=== PATIENT | male | born 1950 | race Caucasian/White ===

== ENCOUNTER 2020-08-10 06:24 | Day surgery (SDC) | payer MEDICARE, BC ==
[2020-08-10] MEDS ORDERED: Dexamethasone 4 MG/ML SDV IV ONE (06:25)
[2020-08-10] MEDS ORDERED: Midazolam 1 MG/ML 2 ML SDV IV ONE (06:25)
[2020-08-10] MEDS ORDERED: Sodium Chloride 0.9% 10 ML Syringe IV ONE (06:25)
[2020-08-10] MEDS ORDERED: Proparacaine 0.5% Ophth Soln 15 ML Bottle EYERT ONE (06:30)
[2020-08-10] MEDS ORDERED: Sodium Chloride 0.9% 10 ML Syringe FLUSH PRN (06:30)
[2020-08-10] MEDS ORDERED: Acetaminophen 325 MG Tab PO PRN (06:30)
[2020-08-10] MEDS ORDERED: Timolol Maleate 0.5% Ophth Soln 5 ML Bottle EYERT ONE (06:30)
[2020-08-10] MEDS ORDERED: Phenylephrine 10% Ophth Soln 5 ML Bot EYERT PRN (06:30)
[2020-08-10] MEDS ORDERED: Tropicamide 1% Ophth Soln 15 ML Bottle EYERT ONE (06:30)
[2020-08-10] MEDS ORDERED: Phenylephrine 10% Ophth Soln 5 ML Bot EYERT ONE (06:30)
[2020-08-10] MEDS ORDERED: Moxifloxacin 0.5% Ophth Soln 3 ML Bottle EYERT ONE (06:30)
[2020-08-10] MEDS ORDERED: Cataract Ophth Solution EYERT ONE (06:30)
[2020-08-10] MEDS ORDERED: Povidone-Iodine 5% Sterile Ophth Soln 30 ML Bottle EYERT ONE ×2 (06:30→07:55)
[2020-08-10] MEDS ORDERED: Ondansetron 4 MG/2 ML SDV IVPUSH PRN (06:30)
[2020-08-10] MEDS ORDERED: Tetracaine HCl/PF 0.5% 4 ML Bottle EYERT ONE (07:55)
[2020-08-10] MEDS ORDERED: Lidocaine 1% 30 ML SDV ONE (07:55)
[2020-08-10] MEDS ORDERED: Dexamethasone/Neomycin/Polymyxin B Ophth Oint 3.5 GM Tube EYERT ONE (07:56)
[2020-08-10] MEDS ORDERED: Apraclonidine 0.5% Ophth Soln 5 ML Bot EYERT ONE (07:56)
[2020-08-10] MEDS ORDERED: Diclofenac Sodium 0.1% Ophth Soln 5 ML Bottle EYERT ONE (07:56)
[2020-08-10] MEDS ORDERED: Chondroitin Sulfate/Hyaluronate Sodium Ophth Inj 0.75 ML Syringe EYERT ONE (07:57)
[2020-08-10] MEDS ORDERED: Balanced Salt Solution Ophth Irrig 500 ML Bottle IOCULAR ONE (07:57)
[2020-08-10] MEDS ORDERED: Vancomycin 500 MG SDV EYERT ONE (07:57)
--- NOTE | 2020-08-10 14:52 | OR ---
DATE: 08/10/2020 PREOPERATIVE DIAGNOSIS: Visually significant mixed cataract, right eye. POSTOPERATIVE DIAGNOSIS: Visually significant mixed cataract, right eye. PROCEDURE: Extracapsular cataract extraction with intraocular lens implant, right eye. ANESTHESIA: Topical/local MAC. COMPLICATIONS: None. INDICATION: Mr. Dey was seen in the clinic with complaints of difficulty with bright lights and glare, difficulty driving, difficulty seeing small print. His examination revealed visually significant mixed cataract with best spectacle corrected visual acuity at the level of 20/80. Oncoming light revealed a visual acuity of 20 unable. He did see his regular plasterer rough, Dr. Whitaker. Dr. Whitaker was unable to improve his vision with a change in glasses. I explained options to Mr. Dey, offered cataract surgery, and explained risks, including, but not limited to, infection, retinal detachment, loss of vision, need for additional surgery, and risks associated with anesthesia. We discussed implant options. He has requested a monofocal implant. He understands that he will likely require glasses for some activities following surgery. OPERATIVE DESCRIPTION: After informed consent was obtained and the risks, benefits, and alternatives were explained, the patient was brought to the operative suite and topical anesthesia was administered. The patient was then prepped and draped in the sterile fashion and attention was placed on the right eye. A sterile lid speculum was placed into the right eye to allow operative exposure. A full-thickness paracentesis was made in the temporal portion of the operative eye. Preservative-free lidocaine 0.1 mL was injected into the anterior chamber followed by viscoelastic. A full-thickness corneal incision was then made into the anterior chamber. A bent needle cystotome was used to create a small sunitha in the anterior capsule. The capsulorrhexis forceps was then used to create a 360-degree curvilinear capsulorrhexis. The nucleus was then removed using a phacoemulsification handpiece and the remaining cortical material was then removed with irrigation and aspiration handpiece. Following removal of the cortical material, the capsular bag was then inspected and noted to be free of any holes or tears. Viscoelastic was then injected into the capsular bag and the intraocular lens was inserted into the capsular bag. The viscoelastic material was then removed from both the anterior and posterior chambers and from behind the IOL. The lens and capsular bag were then reinspected. The IOL was well centered and the capsular bag intact. The wound and paracentesis sites were inspected and hydrated with balanced saline solution. Both were found to be self- sealing. The intraocular pressure was assessed digitally and found to be within normal range. A good red reflex was noted at the completion of the procedure. No complications occurred during the operation. At the completion of the procedure, Maxitrol, Voltaren, and Iopidine drops were placed into the operative eye. A sterile eye shield was placed over the operative eye and the patient was transported to the postoperative recovery area having tolerated the procedure well. Postoperative instructions were given along with a postoperative appointment. The patient was advised to call with any questions or concerns. [facility] /[id number]
== END 2020-08-10 09:07 | disposition home or self-care (01) ==
LOC: DL.SDS 06:24
PROVIDERS: ATTEND Ophthalmology
DX: H26.8 Other specified cataract (principal); Z79.899 Other long term (current) drug therapy
CPT/HCPCS: 00142; 66984; A9270; J1100; J2001; J2250; J3370; V2632

== ENCOUNTER 2020-08-17 06:23 | Day surgery (SDC) | payer MEDICARE, BC ==
[2020-08-17] MEDS ORDERED: Sodium Chloride 0.9% 10 ML Syringe IV ONE (06:24)
[2020-08-17] MEDS ORDERED: Midazolam 1 MG/ML 2 ML SDV IV ONE (06:24)
[2020-08-17] MEDS ORDERED: Dexamethasone 4 MG/ML SDV IV ONE (06:24)
[2020-08-17] MEDS ORDERED: Ondansetron 4 MG/2 ML SDV IVPUSH PRN (06:30)
[2020-08-17] MEDS ORDERED: Acetaminophen 325 MG Tab PO PRN (06:30)
[2020-08-17] MEDS ORDERED: Cataract Ophth Solution EYELF ONE (06:30)
[2020-08-17] MEDS ORDERED: Timolol Maleate 0.5% Ophth Soln 5 ML Bottle EYELF ONE (06:30)
[2020-08-17] MEDS ORDERED: Povidone-Iodine 5% Sterile Ophth Soln 30 ML Bottle EYELF ONE ×2 (06:30→07:56)
[2020-08-17] MEDS ORDERED: Moxifloxacin 0.5% Ophth Soln 3 ML Bottle EYELF ONE (06:30)
[2020-08-17] MEDS ORDERED: Tropicamide 1% Ophth Soln 15 ML Bottle EYELF ONE (06:30)
[2020-08-17] MEDS ORDERED: Sodium Chloride 0.9% 10 ML Syringe FLUSH PRN (06:30)
[2020-08-17] MEDS ORDERED: Proparacaine 0.5% Ophth Soln 15 ML Bottle EYELF ONE (06:30)
[2020-08-17] MEDS ORDERED: Phenylephrine 10% Ophth Soln 5 ML Bot EYELF ONE ×2 (06:30→07:55)
[2020-08-17] MEDS ORDERED: Phenylephrine 10% Ophth Soln 5 ML Bot EYELF PRN (06:30)
[2020-08-17] MEDS ORDERED: Tetracaine HCl/PF 0.5% 4 ML Bottle EYELF ONE (07:53)
[2020-08-17] MEDS ORDERED: Lidocaine 1% 30 ML SDV ONE (07:53)
[2020-08-17] MEDS ORDERED: Diclofenac Sodium 0.1% Ophth Soln 5 ML Bottle EYELF ONE (07:54)
[2020-08-17] MEDS ORDERED: Apraclonidine 0.5% Ophth Soln 5 ML Bot EYELF ONE (07:54)
[2020-08-17] MEDS ORDERED: Dexamethasone/Tobramycin 0.1-0.3% Ophth Oint 3.5 GM Tube EYELF ONE (07:56)
[2020-08-17] MEDS ORDERED: Balanced Salt Solution Ophth Irrig 500 ML Bottle IOCULAR ONE (07:56)
[2020-08-17] MEDS ORDERED: Chondroitin Sulfate/Hyaluronate Sodium Ophth Inj 0.75 ML Syringe EYELF ONE (07:56)
[2020-08-17] MEDS ORDERED: Vancomycin 500 MG SDV EYELF ONE (07:56)
--- NOTE | 2020-08-17 11:11 | OR ---
DATE: 08/17/2020 PREOPERATIVE DIAGNOSIS: Visually significant mixed cataract, left eye. POSTOPERATIVE DIAGNOSIS: Visually significant mixed cataract, left eye. PROCEDURE: Extracapsular cataract extraction with intraocular lens implant, left eye. ANESTHESIA: Topical/local MAC. COMPLICATIONS: None. INDICATION: Mr. Dey was seen in the clinic. He is referred by his regular extern, Dr. Law. He is unhappy with his vision noticing increased difficulty with bright lights and glare, difficulty driving at night, difficulty seeing small print. Examination revealed visually significant mixed cataract. Best spectacle corrected vision to the level of 20/30, oncoming light reveals a visual acuity of 20/unable. I explained the options, offered cataract surgery, and I explained risks including, but not limited to infection, retinal detachment, loss of vision, need for additional surgery, and risks associated with anesthesia. We discussed implant options. He has a monofocal implant in the right eye. He would like a monofocal implant in the left eye targeting a little more distance dominance. He understands that he has astigmatism and will likely need glasses for best corrected vision. He is comfortable wearing glasses following surgery. He has voiced an understanding with respect to risks and limitations and is motivated to proceed. OPERATIVE DESCRIPTION: After informed consent was obtained and the risks, benefits, and alternatives were explained, the patient was brought to the operative suite and topical anesthesia was administered. The patient was then prepped and draped in the sterile fashion and attention was placed on the left eye. A sterile lid speculum was placed into the left eye to allow operative exposure. A full-thickness paracentesis was made in the temporal portion of the operative eye. Preservative-free lidocaine 0.1 mL was injected into the anterior chamber followed by viscoelastic. A full-thickness corneal incision was then made into the anterior chamber. A bent needle cystotome was used to create a small sunitha in the anterior capsule. The capsulorrhexis forceps was then used to create a 360-degree curvilinear capsulorrhexis. The nucleus was then removed using a phacoemulsification handpiece and the remaining cortical material was then removed with irrigation and aspiration handpiece. Following removal of the cortical material, the capsular bag was then inspected and noted to be free of any holes or tears. Viscoelastic was then injected into the capsular bag and the intraocular lens was inserted into the capsular bag. The viscoelastic material was then removed from both the anterior and posterior chambers and from behind the IOL. The lens and capsular bag were then reinspected. The IOL was well centered and the capsular bag intact. The wound and paracentesis sites were inspected and hydrated with balanced saline solution. Both were found to be self- sealing. The intraocular pressure was assessed digitally and found to be within normal range. A good red reflex was noted at the completion of the procedure. No complications occurred during the operation. At the completion of the procedure, Maxitrol, Voltaren, and Iopidine drops were placed into the operative eye. A sterile eye shield was placed over the operative eye and the patient was transported to the postoperative recovery area having tolerated the procedure well. Postoperative instructions were given along with a postoperative appointment. The patient was advised to call with any questions or concerns. [facility] /[id number]
== END 2020-08-17 09:12 | disposition home or self-care (01) ==
LOC: DL.SDS 06:23
PROVIDERS: ATTEND Ophthalmology
DX: H26.8 Other specified cataract (principal); Z90.49 Acquired absence of other specified parts of digestive tract
CPT/HCPCS: 00140; A9270-GY; J1100; J2001; J2250; J3370; V2632

== ENCOUNTER 2024-02-17 09:14 | Emergency (ER) | payer MEDICARE, BC ==
[2024-02-17] MEDS: Lidocaine 1% 30 ML SDV INJECT ONE (09:40)
[2024-02-17] MEDS: Diphtheria,Pertussis(Acell),Tetanus Vaccine 0.5 ML Syringe IM ONE (09:40)
[2024-02-17] MEDS: Bacitracin Oint 1 GM U/D Packet TOP ONE (09:41)
[2024-02-17] MEDS: Cephalexin 500 MG Cap PO ONE (11:04)
== END 2024-02-17 11:27 | disposition home or self-care (01) ==
LOC: DL.ED 09:14
DX: S61.411A Laceration without foreign body of right hand, initial encounter (principal); Z23 Encounter for immunization; Z90.49 Acquired absence of other specified parts of digestive tract; Z79.899 Other long term (current) drug therapy; W23.1XXA Caught, crushed, jammed, or pinched between stationary objects, initial encounter
CPT/HCPCS: 12004; 73120; 73140; 90471; 90715; 99283; A9270; J3490